=== PATIENT | female | born 1990 | race Two or more races ===

== ENCOUNTER 2019-05-12 19:44 | Emergency (ER) | payer OTHER ==
[~2019-05-12] VITALS: Ht 170.2 cm; Wt 59.4 kg
[2019-05-12 20:27] LABS: BASOPHILS # (AUTO) 0.1 /CMM (0.0-0.2); BASOPHILS % (AUTO) 1.3 % (0.0-2.0); EOSINOPHILS % (AUTO) 1.9 % (0.0-6.0); HEMATOCRIT 33 % (33-45); HEMOGLOBIN 10.5 g/dL (11.5-14.8); LYMPHOCYTES # (AUTO) 2.4 /CMM (0.8-4.8); LYMPHOCYTES % (AUTO) 30.1 % (20.0-44.0); MEAN CORPUSCULAR HGB CONC 32 g/dl (31.0-36.0); MEAN CORPUSCULAR VOLUME 73 fL (82-100); MONOCYTES # (AUTO) 0.7 /CMM (0.1-1.30); MONOCYTES % (AUTO) 8.7 % (2.0-12.0); NEUTROPHILS # (AUTO) 4.6 /CMM (1.8-8.9); PLATELET COUNT (AUTO) 344 /CMM (150-450); RED BLOOD CELL COUNT(AUTO) 4.48 MIL/uL (4.0-5.2); WHITE BLOOD COUNT (AUTO) 7.9 K/uL (4.3-11.0)
--- NOTE | 2019-05-12 20:30 | NUR ---
BIB RA PT TOOK 10 TABS OF KLONOPIN, +SI & DEPRESSION. PT AAOX4, CALM & COOPERATIVE. DENIES CP, SOB, DIZZINESS, N/V, ABD PAIN @ THIS TIME. SEEN & EVAL'D BY DR. DECKER & WILL CONT TO MONITOR. JOHN @ BS.
[2019-05-12 20:42] LABS: CALCIUM, SERUM 8.8 mg/dL (8.5-10.1); CARBON DIOXIDE 29 mmol/L (21-32); CHLORIDE 105 mmol/L (98-107); CREATININE 0.7 mg/dL (0.6-1.3); GLUCOSE 90 mg/dL (74-106); POTASSIUM 3.5 mmol/L (3.5-5.1); SODIUM SERUM 140 mmol/L (136-145); UREA NITROGEN, BLOOD 14 mg/dL (7-18)
[2019-05-12 20:47] LABS: ACETAMINOPHEN < 5 ug/ml (10-30); SALICYLATE 0.8 mg/dL (2.8-20.0)
[2019-05-12 20:48] LABS: ALCOHOL, BLOOD < 3 mg/dL (0-0)
--- NOTE | 2019-05-12 22:04 | NUR ---
[place] ANIYA GRANT STATES ON THE WAY
--- NOTE | 2019-05-12 22:36 | NUR ---
ANIYA INSURANCE SERVICE REPRESENTATIVE AT BEDSIDE FOR EVALUATION
--- NOTE | 2019-05-12 23:22 | NUR ---
PT AWAKE CALM & COOPERATIVE, NAD NOTED @ THIS TIME. WILL CONT TO MONITOR. SITTER @ BS.
--- NOTE | 2019-05-12 23:58 | NUR ---
pt received from helen peck for zuleima. pt ambulated to bathroom on steady gait. nad noted. sitter at bedside
--- NOTE | 2019-05-13 | NUR ---
PER ART IMPROVEMENT ANALYST, FAXED CLINICAL INFORMATION TO [facility] IN [place] AND [facility]. WILL FOLLOW UP FOR UPDATE. [facility] WILL NOT HAVE BED AVAILABLE UNTIL AFTER 0900, FAX CLINCIAL PACKET AT THAT TIME.
--- NOTE | 2019-05-13 01:17 | NUR ---
PT RESTING COMFORTABLY IN BED. EASILY AROUSABLE. SITTER AT BEDSIDE.
--- NOTE | 2019-05-13 01:48 | NUR ---
ATTEMPTED TO CONTACT [facility] FOR UPDATE. LEFT A MESSAGE.
--- NOTE | 2019-05-13 01:50 | NUR ---
CALLED [facility] IN [place] FOR UPDATE. SPOKE WITH ALEXYS, BED WILL NOT BE AVAILABLE UNTIL AFTER 0900
--- NOTE | 2019-05-13 04:01 | NUR ---
PT RESTING COMFORTABLY IN BED. EASILY AROUSABLE. VITAL SIGNS STABLE. SITTER AT BEDSIDE.
--- NOTE | 2019-05-13 04:37 | NUR ---
ATTEMPTED TO CONTACT [facility], NO ANSWER.
[2019-05-13] MEDS ORDERED: MIRT30TA PO (07:25)
[2019-05-13] MEDS ORDERED: PARO10TA86 PO (07:27)
[2019-05-13] MEDS ORDERED: CLON0.5T PO (07:27)
[2019-05-13] MEDS ORDERED: clonazePAM 1 MG TABLET PO ONE (07:30)
--- NOTE | 2019-05-13 07:32 | NUR ---
FAXED CLINICAL INFORMATION TO [facility]
--- NOTE | 2019-05-13 07:34 | NUR ---
GETTING AGITATED THREATENING TO WALK OUT, SAYING SHE HASN'T GOTTEN HER MEDICATIONS, DR JONES INFORMED. 1:1 JOHN CHAMBERS AT BEDSIDE
--- NOTE | 2019-05-13 07:35 | NUR ---
PHARMACY CALLED FOR ORDERED MEDS
[2019-05-13] MEDS ORDERED: clonazePAM 1 MG TABLET ONE (07:37)
--- NOTE | 2019-05-13 07:47 | NUR ---
PAXIL WASTED (5 MG) WITH ALCANCES RN
[2019-05-13] MEDS ORDERED: PAROXETINE HCL 10 MG TABLET PO SCH (09:00)
--- NOTE | 2019-05-13 09:53 | NUR ---
SEEN BY BROOKE THEODORE SALES CLERK FOOD.
--- NOTE | 2019-05-13 10:30 | NUR ---
Patient in stable condition, discharged to home in stable condition. Written and verbal after care instructions given. Patient verbalizes understanding of instruction. Mom at bedside accompanied the patient.
[2019-05-13 12:29] VITALS: BP 120/80
== END 2019-05-13 12:29 | disposition home or self-care (01) ==
LOC: ER 19:47
DX: F32.9 Major depressive disorder, single episode, unspecified (principal); R45.851 Suicidal ideations; J45.909 Unspecified asthma, uncomplicated
CPT/HCPCS: 36415; 80048; 80305; 80307; 80329; 84703; 85025; 99285; G0480